=== PATIENT | female | born 1985 | race African-American/Black ===

== ENCOUNTER 2019-09-29 15:12 | Emergency (ER) | payer MEDICAID ==
[~2019-09-29] VITALS: Ht 165.1 cm; Wt 74.8 kg
[2019-09-29 15:28] VITALS: BP 120/74
[2019-09-29 15:42] LABS: APPEARANCE,URINE CLEAR; COLOR,URINE YELLOW
[2019-09-29 15:43] LABS: BILIRUBIN, URINE NEGATIVE (NEGATIVE); GLUCOSE, URINE (UA) NEGATIVE (NEGATIVE); KETONES,URINE NEGATIVE (NEGATIVE); LEUKOCYTE ESTERASE ,URINE NEGATIVE (NEGATIVE); NITRITE,URINE NEGATIVE (NEGATIVE); PROTEIN,URINE NEGATIVE (NEGATIVE); UROBILINOGEN,URINE NORMAL MG/DL (0.0-1.0)
--- NOTE | 2019-09-29 15:49 | Emergency Room Report ---
History of Present Illness General Chief Complaint: Abdominal Pain Source: Patient Present Illness HPI 34 YO Female presents to the ED c/o increased pelvic pain x 1 month. PT. reports hx of fibroid. Pt. denies taking any medications or being prescribed anything. Pt. reports hx of heavy painful periods which previously were treated with oral control. Pt. reports d/c of control x 5 months as she is family planning. Pt. has never been in the past. She denies suspicion or hx of STD. Pt. denies vaginal discharge or bleeding. Pt. denies nausea or vomiting. She denies fevers or chills. She denies constipation or diarrhea. Denies dysuria, frequency or urgency. Pt. reports pain only after intercourse on occasion but not during. PT. denies genital lesions or rashes. She reports not having a PCP. She denies acute onset of her pain. She reports hx of cysts as well. She reports pain is more in the right adnexal area today. She reports pain exacerbated after exercise or prolonged walking. Allergies: Coded Allergies: No Known Allergies (Unverified , 09/29/19) COVID-19 Screening Contact w/high risk pt: No Experienced COVID-19 symptoms?: No COVID-19 Testing performed REFRIGERATING TECHNICIAN: No Patient History Past Medical History: see triage record Past Surgical History: none Pertinent Family History: none Last Menstrual Period: 09/10/19 Now: No Reviewed Nursing Documentation: PMH: Agreed; PSxH: Agreed Review of Systems All Other Systems: negative except mentioned in HPI Physical Exam Vital Signs Date Time Temp Pulse Resp B/P (MAP) Pulse Ox O2 Delivery O2 Flow Rate FiO2 09/29/19 15:16 98.4 58 18 120/74 (89) 96 Room Air Sp02 EP Interpretation: reviewed, normal General Appearance: no apparent distress, alert, GCS 15, non-toxic Head: normocephalic, atraumatic Eyes: bilateral eye normal inspection, bilateral eye PERRL ENT: hearing grossly normal, normal voice Neck: full range of motion Respiratory: lungs clear, normal breath sounds, speaking full sentences Cardiovascular #1: regular rate, rhythm Gastrointestinal: normal bowel sounds, non tender, soft, non-distended, no guarding, no hernia Rectal: deferred Genitourinary: normal inspection, no CVA tenderness, other - TTP acros pubic area and on the right adnexa Musculoskeletal: back normal, normal range of motion, gait/station normal, non- tender Neurologic: alert, motor strength/tone normal, oriented x3, sensory intact, responsive, speech normal Psychiatric: judgement/insight normal Lymphatic: no adenopathy Medical Decision Making PA Attestation Dr. Mejia Is my supervising Physician whom patient management has been discussed with. Diagnostic Impression: Primary Impression: Fibroid uterus Qualified Codes: D25.9 - Leiomyoma of uterus, unspecified Additional Impression: Left ovarian cyst ER Course 34 YO Female presents to the ED c/o increased pelvic pain x 1 month. PT. reports hx of fibroid. Pt. denies taking any medications or being prescribed anything. Pt. reports hx of heavy painful periods which previously were treated with oral control. Pt. reports d/c of control x 5 months as she is family planning. Pt. has never been in the past. She denies suspicion or hx of STD. Pt. denies vaginal discharge or bleeding. Pt. denies nausea or vomiting. She denies fevers or chills. She denies constipation or diarrhea. Denies dysuria, frequency or urgency. Pt. reports pain only after intercourse on occasion but not during. PT. denies genital lesions or rashes. She reports not having a PCP. She denies acute onset of her pain. She reports hx of cysts as well. She reports pain is more in the right adnexal area today. She reports pain exacerbated after exercise or prolonged walking. LMP was . Ddx considered but are not limited to Diverticulitis, acute appy, ovarian torsion, ectopic , PID tubo-ovarian abscess, ovarian cyst. Vital signs: are WNL, pt. is afebrile H&PE are most consistent with possible fibroids vs ovarian cyst, however due to presentation will r/o torsion, ectopic, and ORDERS: -UA: Unremarkable -URINE HCG: negative -Pelvic US Complete: 6.1 cm fibroid in addition to multiple hemorrhagic cyst in the left ovaries. Normal color Doppler to the bilateral ovaries. No free fluid in the cul-de-sac. Uterus is enlarged. In comparison with previous ultrasound the fibroid has been reported as decreased in size. ED INTERVENTIONS: - None required at this time. Offered pt. NSAIDs, pt. is trying to become and wants to avoid medications. DISCHARGE: At this time pt. is stable for d/c to home. Will provide printed patient care instructions, and any necessary prescriptions. Care plan and follow up instructions have been discussed with the patient prior to discharge. Labs Test 09/29/19 15:30 Urine Color Yellow Urine Appearance Clear Urine pH 6.0 (4.5-8.0) Urine Specific [place] 1.015 (1.005-1.035) Urine Protein Negative (NEGATIVE) Urine Glucose (UA) Negative (NEGATIVE) Urine Ketones Negative (NEGATIVE) Urine Blood Negative (NEGATIVE) Urine Nitrite Negative (NEGATIVE) Urine Bilirubin Negative (NEGATIVE) Urine Urobilinogen Normal MG/DL (0.0-1.0) Urine Leukocyte Esterase Negative (NEGATIVE) Urine HCG, Qualitative Negative (NEGATIVE) CT/MRI/US Diagnostic Results CT/MRI/US Diagnostic Results : Imaging Test Ordered: Pelvic Ultrasound Impression " Normal color doppler flow to bilateral ovaries. Impression: Enlarged fibroid uterus Multiple hemorrhagic left ovarian cysts" --- per official radiology report- Please see report for specific details. Last Vital Signs Date Time Temp Pulse Resp B/P (MAP) Pulse Ox O2 Delivery O2 Flow Rate FiO2 09/29/19 15:28 58 18 Room Air 09/29/19 15:28 98.4 120/74 96 Disposition: HOME, SELF-CARE Condition: Stable Referrals: Mariluz Godoy [facility] + [facility] Patient Instructions: Ovarian Cyst, [id number], Uterine Fibroids, Easy-to- Read Additional Instructions: Take OTC NSAID medications as directed. Follow up with a GYNECOLOGICAL SPECIALIST within 3-5 days, even if your symptoms have resolved. Return sooner to ED if new symptoms occur, or current symptoms become worse. - Please note that this Emergency Department Report was dictated using [employer] coordinator technology software, occasionally this can lead to erroneous entry secondary to interpretation by the dictation equipment. Taylor Navarro Sep 29, 2019 15:49
--- NOTE | 2019-09-29 17:03 | Diagnostic Imaging Report ---
Indication: Pelvic pain, Negative urine test Technique: Transabdominal and transvaginal images. Comparison: none Findings: Uterus measures 11.8 cm in length by 9 cm AP. Within the fundus, there multiple fibroids, including a large fibroid measuring 6.1 cm. Endometrium measures 11 mm thick., The left ovary measures 4.4 cm in length, contains a 2.9 cm hemorrhagic versus as well as a second 1.7 cm hemorrhagic cyst. The right ovary measures 3.5 cm in length. Both ovaries demonstrate normal flow on Doppler. No free cul-de-sac fluid. Impression: Enlarged fibroid uterus Multiple hemorrhagic left ovarian cysts
[2019-09-29 17:35] VITALS: BP 118/70
== END 2019-09-29 17:35 | disposition home or self-care (01) ==
LOC: EMR 15:41
DX: D25.9 Leiomyoma of uterus, unspecified (principal); N83.202 Unspecified ovarian cyst, left side
CPT/HCPCS: 76830; 76856; 81003; 81025; Z7502; 99284